=== PATIENT | female | born 1985 | race Two or more races ===

== ENCOUNTER 2021-07-18 08:00 | Inpatient (IN) | payer OTHER ==
[~2021-07-18] VITALS: Ht 180.3 cm; Wt 3.2 kg
[2021-07-22] MEDS ORDERED: IMODIUM A-D2 M2 PO (02:38)
[2021-07-22] MEDS ORDERED: PRENATAL TABLE1 EAC1 PO (02:39)
[2021-07-22] MEDS ORDERED: IRON325 MG PO (02:39)
[2021-07-26] MEDS ORDERED: INTEGRA PLUS C1 EACH (14:55)
[2021-07-28] MEDS ORDERED: KETO10TA2 PO (10:35)
[2021-07-28] MEDS ORDERED: OXYC1TAB9 PO (10:36)
== END 2021-07-28 14:07 | disposition home or self-care (01) | DRG 788 ==
LOC: LDR 07-25 08:00 → SURG-SUITE 07-25 09:00 → O/R 07-25 09:00 → LDR 07-25 11:30 → SURG-SUITE 07-25 14:57
PROVIDERS: ADMIT Obstetrics & Gynecology; ATTEND Obstetrics & Gynecology
PROC: 4A1HXFZ Monitoring of Products of Conception, Cardiac Rhythm, External Approach (ICD-10-PCS; 2021-07-25)
PROC: 10D00Z1 Extraction of Products of Conception, Low, Open Approach (ICD-10-PCS; principal; 2021-07-25 11:30)
DX: O34.211 Maternal care for low transverse scar from previous cesarean delivery (principal); Z30.2 Encounter for sterilization; Z37.0 Single live birth; Z3A.39 39 weeks gestation of pregnancy

== ENCOUNTER 2021-07-22 02:27 | Outpatient (CLI) | payer OTHER ==
[2021-07-22] MEDS ORDERED: IMODIUM A-D2 M2 PO (02:38)
[2021-07-22] MEDS ORDERED: PRENATAL TABLE1 EAC1 PO (02:39)
[2021-07-22] MEDS ORDERED: IRON325 MG PO (02:39)
== END 2021-07-22 11:25 | disposition home or self-care (01) ==
LOC: OBS/DEL 02:27
PROVIDERS: ATTEND Obstetrics & Gynecology
DX: O16.3 Unspecified maternal hypertension, third trimester (principal); Z3A.39 39 weeks gestation of pregnancy